=== PATIENT | male | born 1930 | race Caucasian/White ===

== ENCOUNTER 2016-12-21 09:37 | Emergency (ER) | payer MEDICARE ==
--- NOTE | 2016-12-21 09:53 | ED.PDOC ---
History of Present Illness - General Chief Complaint: Respiratory Problem Stated Complaint: shortness of breath Time Seen by Provider: 12/21/16 09:39 Source: patient, family Exam Limitations: no limitations - History of Present Illness Initial Comments: Patient is an 86 yo M with CHF, NIDDM, COPD, HTN, atrial fibrillation who presents with dyspnea for two days and chest pain for three days. He says he has had the chest pain multiple previous times. It is mid-sternal, constant, non -radiating, pressure like, no modifying factors. Has chronic bipedal edema that he will take lasix prn for. Last lasix dose three days ago. Distant hx of smoking. Timing/Duration: other - 3 days Severity: moderate Improving Factors: rest Worsening Factors: movement Associated Symptoms: chest pain, shortness of breath Allergies/Adverse Reactions: Allergies Aspirin [From ASA Compound] Allergy (Verified 12/20/12 13:46) Caffeine [From ASA Compound] Allergy (Verified 12/20/12 13:46) Penicillins Allergy (Verified 12/20/12 13:46) Phenacetin [From ASA Compound] Allergy (Verified 12/20/12 13:46) Home Medications: Ambulatory Orders Albuterol Inhaler [Ventolin Hfa Inhaler] 1 puff INH PRN #0 03/09/13 Budesonide-Formoterol Fumarate [Symbicort 160-4.5 Mcg/Act] 2 inh INH BID #0 09/11 Tiotropium Inhaler [Spiriva Handihaler] 1 puff INH DAILY #0 03/09/13 Albuterol Sulfate 1.25 mg IN Q4H PRN 11/04/16 Apixaban [Eliquis] 2.5 mg PO BID 11/04/16 Aspirin [Aspirin Childrens] 81 mg PO DAILY 11/04/16 Finasteride 5 mg PO BEDTIME 11/04/16 Flunisolide (Nasal) [Flunisolide] 2 spray INH BID 11/04/16 Furosemide [Lasix] 20 mg PO DAILY PRN 11/04/16 Gabapentin 600 mg PO TID 11/04/16 Metformin HCl [Metformin HCl ER] 500 mg PO DAILY 11/04/16 Midodrine HCl 5 mg PO TID 11/04/16 Ranolazine [Ranexa] 500 mg PO BID 11/04/16 Bifidobacterium Infantis [Align] 4 mg PO DAILY #30 cap 11/10/16 Doxycycline (Monohydrate) [Doxycycline] 100 mg PO BID #20 cap 11/10/16 Isosorbide Mononitrate (Ismo) [Ismo] 20 mg PO QPM #15 tab 11/10/16 Nitroglycerin Patch 0.4 mg/Hr [Nitro-Dur PATCH 0.4 mg/hour] 1 ea TOP QAM #15 patch 11/10/16 Terazosin [Hytrin] 2 mg PO BEDTIME #30 cap 11/10/16 guaiFENesin ER TAB [Mucinex Tab] 600 mg PO BID #0 tab 11/10/16 levoFLOXacin [Levaquin] 500 mg PO DAILY #11 tab 11/10/16 predniSONE [Prednisone] See Taper PO DAILY #30 tab 11/10/16 Review of Systems - Review of Systems Constitutional: States: no symptoms reported EENTM: States: no symptoms reported Respiratory: States: see HPI Cardiology: States: see HPI Gastrointestinal/Abdominal: States: no symptoms reported Genitourinary: States: no symptoms reported Musculoskeletal: States: no symptoms reported Skin: States: no symptoms reported Neurological: States: no symptoms reported Endocrine: States: no symptoms reported Hematologic/Lymphatic: States: no symptoms reported Past Medical History (General) - Patient Medical History Hx Seizures: No Hx Stroke: No Hx Asthma: Yes Hx of COPD: Yes Hx Cardiac Disorders: Yes - afib Hx Congestive Heart Failure: Yes Hx Pacemaker: No Hx Hypertension: Yes Hx Diabetes: No Hx Cancer: No Hx Hepatitis C: No Hx MRSA: No - Vaccination History Hx Tetanus, Diphtheria Vaccination: Yes Hx Influenza Vaccination: Yes Hx Pneumococcal Vaccination: Yes - Social History Hx Tobacco Use: No Hx Chewing Tobacco Use: No Hx Alcohol Use: No Hx Substance Use: No Hx Physical Abuse: No Hx Emotional Abuse: No Hx Suspected Abuse: No Family Medical History - Family History Mother Family History: No Known Physical Exam - Physical Exam General Appearance: Obvious distress Eye Exam: bilateral normal Ears, Nose, Throat: normal ENT inspection Neck: non-tender, full range of motion, supple Respiratory: other - tachypneia, + use of accessory muscles, + expiratory wheezes in all lung dewitt Cardiovascular/Chest: tachycardia, irregularly irregular Gastrointestinal/Abdominal: normal bowel sounds, non tender, soft Extremity: non-tender, no pedal edema Neurologic: no motor/sensory deficits Skin Exam: normal color Lymphatic: no adenopathy Progress - Progress Progress: 12/21/16 14:04 Patient received Lasix 40 mg IV x one and solumedrol 125 mg IV x one. BNP 297. He had over 200 cc urine output and his dyspnea resolved. 12/21/16 14:06 Patient revealed that he was told by his pcp to take lasix 20 mg every morning but he hasn't been doing that. This appears to be mild CHF exac that has resolved. I will discharge him with instructions to take his lasix daily. His son will stay with him tonight. Strict orders to return to the ER if shortness of breath recurs. Departure - Departure Clinical Impression: CHF (congestive heart failure), NYHA class I Disposition: Discharge to Home or Self Care Condition: Good Departure Forms: ED Discharge - Pt. Copy, Patient Portal Self Enrollment Diet: resume usual diet Activity: increase activity as tolerated Home Medications: Ambulatory Orders Albuterol Inhaler [Ventolin Hfa Inhaler] 1 puff INH PRN #0 03/09/13 Budesonide-Formoterol Fumarate [Symbicort 160-4.5 Mcg/Act] 2 inh INH BID #0 09/11 Tiotropium Inhaler [Spiriva Handihaler] 1 puff INH DAILY #0 03/09/13 Albuterol Sulfate 1.25 mg IN Q4H PRN 11/04/16 Apixaban [Eliquis] 2.5 mg PO BID 11/04/16 Aspirin [Aspirin Childrens] 81 mg PO DAILY 11/04/16 Finasteride 5 mg PO BEDTIME 11/04/16 Flunisolide (Nasal) [Flunisolide] 2 spray INH BID 11/04/16 Furosemide [Lasix] 20 mg PO DAILY PRN 11/04/16 Gabapentin 600 mg PO TID 11/04/16 Metformin HCl [Metformin HCl ER] 500 mg PO DAILY 11/04/16 Midodrine HCl 5 mg PO TID 11/04/16 Ranolazine [Ranexa] 500 mg PO BID 11/04/16 Bifidobacterium Infantis [Align] 4 mg PO DAILY #30 cap 11/10/16 Doxycycline (Monohydrate) [Doxycycline] 100 mg PO BID #20 cap 11/10/16 Isosorbide Mononitrate (Ismo) [Ismo] 20 mg PO QPM #15 tab 11/10/16 Nitroglycerin Patch 0.4 mg/Hr [Nitro-Dur PATCH 0.4 mg/hour] 1 ea TOP QAM #15 patch 11/10/16 Terazosin [Hytrin] 2 mg PO BEDTIME #30 cap 11/10/16 guaiFENesin ER TAB [Mucinex Tab] 600 mg PO BID #0 tab 11/10/16 levoFLOXacin [Levaquin] 500 mg PO DAILY #11 tab 11/10/16 predniSONE [Prednisone] See Taper PO DAILY #30 tab 11/10/16 Additional Instructions: Take your lasix as directed by your regular doctor. Return to the ER immediately for shortness of breath or fever. Follow up with your regular doctor this week.
[2016-12-21] MEDS ORDERED: FUROSEMIDE INJ 40 MG/4 ML VIAL IV ONE (09:58)
[2016-12-21] MEDS ORDERED: methylPREDNISolone SODIUM SUC 125 MG/2 ML VIAL IV ONE (09:58)
[2016-12-21] MEDS ORDERED: NITROGLYCERIN/D5W IV 250 ML IVS ONE (10:01)
--- NOTE | 2016-12-21 10:19 | RAD ---
EXAM DESCRIPTION: XR CHEST 1 VIEW CLINICAL HISTORY: 86 y/o M, dyspnea, chest pain COMPARISON: 11/10/2016. TECHNIQUE: Frontal radiograph of the chest. FINDINGS: The lungs are emphysematous but clear. The heart is at the upper limit of normal in size. There is no pneumothorax or pleural effusion. The left costophrenic angle has been collimated from view. There is no acute fracture. IMPRESSION: Emphysematous appearing lungs. Electronically signed by: Júnior Monroe MD 12/21/2016 10:17
[2016-12-21] MEDS ORDERED: NEOMYCIN-BACITRACIN-POLYMYXIN 0.9 GM UD TOP ONE (14:22)
[2016-12-21] MEDS ORDERED: IPRATROPIUM/ALBUTEROL 3 ML VIAL NEB ONE (15:00)
[2016-12-21 15:56] VITALS: BP 123/69; TEMP 98; O2SAT 95
== END 2016-12-21 14:42 | disposition home or self-care (01) ==
LOC: ER 09:37
DX: I11.0 Hypertensive heart disease with heart failure (principal); I50.9 Heart failure, unspecified; I48.91 Unspecified atrial fibrillation; Z79.82 Long term (current) use of aspirin; Z79.899 Other long term (current) drug therapy; Z88.0 Allergy status to penicillin; Z88.6 Allergy status to analgesic agent

== ENCOUNTER 2016-12-22 15:25 | Inpatient (IN) | payer MEDICARE ==
--- NOTE | 2016-12-22 15:49 | HP ---
SUPERVISING PHYSICIAN: Rufino Jha M.D. CHIEF COMPLAINT: Severe shortness of breath. HISTORY OF PRESENT ILLNESS: Mr. De Luna is an 86 year-old male patient of Dr. Sykes's who was seen today in the clinic in followup from E. R. visit this past weekend for the same complaint of shortness of breath. In the Emergency Department, the patient was felt to be having a mild exacerbation of his congestive heart failure. He was discharged with instructions to take his Lasix as normal at home and to return to the hospital should he not have any improvement of symptoms. Today in the office, Dr. Sykes found the patient to be in moderate respiratory distress. He requested the patient be admitted to the Medical/Surgical floor for treatment and evaluation having failed outpatient treatment plan for exacerbation of chronic obstructive pulmonary disease as his O2 saturations in the clinic today was 83% on nasal cannula at 5 liters. It was noted the patient was also given Solu-Medrol in the E. R. prior to discharge. The patient reports that he had minimal improvement in his symptoms. He went home and had significant worsening of symptoms overnight requiring him to increase his flow on his nasal cannula as well as he noted that he is having significant wheezing and a cough that is now becoming productive with thick green sputum. He was sent to the hospital for direct admission. He was admitted in stable condition for exacerbation of chronic obstructive pulmonary disease having failed to respond to outpatient treatment plan. PAST MEDICAL HISTORY: 1. Congestive heart failure of unknown etiology with no recent echocardiogram. 2. Chronic obstructive pulmonary disease with frequent exacerbations with last hospitalization being on 11/04/16. 3. Type 2 diabetes. 4. Gastroesophageal reflux disease. 5. Hyperlipidemia. 6. Hypertension. 7. Osteoarthritis. 8. Chronic atrial fibrillation with the patient being on Eliquis for anticoagulation. PAST SURGICAL HISTORY: 1. Cholecystectomy. 2. Hernia repair. 3. Scope of his knee. OUTPATIENT MEDICATIONS: Please refer to electronic medical records and [facility] for an updated list of verified home medications. ALLERGIES: HE STATES HE HAS NO KNOWN DRUG ALLERGIES, ALTHOUGH HIS CHART STATES THAT HE HAS AN ALLERGY TO ASPIRIN, PENICILLIN, CAFFEINE, PHENACETIN, ALTHOUGH HE TAKES AN ASPIRIN DAILY. FAMILY HISTORY: Unremarkable. SOCIAL HISTORY: He is retired. He does have a past history of cigarette smoking but he quit in 1974. He denies any alcohol or illicit drug use. REVIEW OF SYSTEMS: CONSTITUTIONAL: He does note some chills, fevers subjective with significant fatigue with no unintentional weight loss or weight gain. HEENT: Denies any sinus symptoms, ear pain, vision changes or sore throat. RESPIRATORY: As noted per History of Present Illness. Severe shortness of breath having been seen in the Emergency Department on previous day having not responded to treatment plan. CARDIOVASCULAR: Denies any chest pains, palpitations or tachycardia. GASTROINTESTINAL: Denies any abdominal pains, constipation, diarrhea, nausea or vomiting. MUSCULOSKELETAL: Notes generalized arthralgias and myalgias. GENITOURINARY: Denies any hematuria, nocturia or dysuria. NEUROLOGIC: Denies any headaches, dizziness or seizures. PHYSICAL EXAMINATION: VITAL SIGNS: Temperature 98.0, pulse 84, blood pressure 114/65, respirations 24 to 28 and labored with O2 sat initially showing in the clinic to be 83% on room air with only improving to 86% with 4 liter to 5 liter nasal cannula prior to breathing treatments. After breathing treatments, the patient was noted to have significant improvement in his saturations being 94% on nasal cannula at 4 liters. GENERAL: Mr. De Luna appears to be in acute distress secondary to respiratory distress with pursed lip breathing, inability to talk in complete sentences, and notably tachypneic. HEENT: Tympanic membranes are clear bilaterally. Oropharynx is pink. Oral mucosa are dry. No lesions noted. NECK: No jugular venous distention. CHEST: Breath sounds are significantly decreased throughout the entire chest with some notable expiratory wheezing with an extended expiratory phase with some notable rhonchi heard through bilateral bases. CARDIOVASCULAR: Heart is regular rate and rhythm without appreciable murmurs, gallops, or rubs. ABDOMEN: Soft, non-tender. Positive bowel sounds. EXTREMITIES: No cyanosis, clubbing or edema. There is notable mild swelling of the left elbow which is chronic with some serosanguinous drainage but no obvious areas of fluctuation. The area is tender with palpation. NEUROLOGIC: He is alert and oriented times three with severe decreased hearing requiring hearing aids. Cranial nerves II-XII are grossly intact. Facial features are symmetric. Extraocular movements are within normal limits. There is no nystagmus. LABORATORY: White count 9.1 which is increased from previous CBC yesterday of 6.1, hemoglobin shows to be 13.4, hematocrit 40.0, platelet count 190,000. He does show a left shift which was not present yesterday in the Emergency Department. Coagulation studies show PT 12.6, PTT 23.4. D-dimer yesterday was less than 230. Blood gases today are slightly worse than previous in the E. R. yesterday with pH of 7.37 compared to 7.4. Today, his PCO2 was 51 compared to 41 as well as PO2 is up to 109 compared to 102 with a bicarb of 29 compared to 27. Base excess is within normal limits at 3.3. Oxyhemoglobin percentage was 97.6. Chemistries show sodium 139, potassium 4.5, carbon dioxide 33 which is elevated from labs completed in the E. R. yesterday showed to be 29. BUN 28, creatinine 0.95, glucose 150, lactic acid 1.4, calcium 9.1, magnesium 1.9. AST , ALT and alkaline phosphatase are all within normal limits. BNP today shows to be significantly decreased from admission in the Emergency Departments yesterday at 124 compared to initial 297. CPK is normal at 27 with an elevated CK-MB percentage of 18.52 with troponin less than 0.03. MICROBIOLOGY: Nasal swabs for flu A and B by PCR were both negative. He has 2 blood cultures pending. Sputum culture is pending. Urinalysis is pending. EKG shows no acute changes from previous days. It shows atrial fibrillation with a controlled ventricular rate. RADIOLOGY: Chest x-ray today per radiology interpretation shows enlarged cardiac silhouette unchanged from previous exams. There is straightening of the pulmonary vessels at the upper lungs compatible with underlying emphysematous changes as well as old rib fractures noted. There is no noted focal parenchyma or pleural disease with no obvious evidence of acute cardiopulmonary disease per radiology interpretation. ASSESSMENT: 1. Acute exacerbation of chronic obstructive pulmonary disease having failed outpatient treatment plan with concerns now for early pneumonia likely community acquired with the patient having a history of recent hospitalization for exacerbation of chronic obstructive pulmonary disease within the last 90 days with Pseudomonas noted in his sputum. 2. Moderate respiratory distress secondary to exacerbation of chronic obstructive pulmonary disease as noted in number 1 with ABGs indicating a partially compensated respiratory acidosis. 3. Gastroesophageal reflux disease. 4. Diabetes mellitus type 2. 5. Osteoarthritis. PLAN: The patient was directly admitted from the clinic at Dr. Sykes's request. The patient initially was in mild to moderate respiratory distress upon arrival to the Medical/Surgical floor and was given DuoNeb treatment with significant improvement with BiPAP for standby with the patient showing improvement without need for noninvasive ventilatory support. Given he has a significant exacerbation of his COPD and failed to respond to outpatient treatment, and a history of left lower lobe pneumonia within the last 90 days with Pseudomonas aeruginosa, he will be started on Levaquin every 24 hours and await sputum culture results. He will be started on q.i.d. DuoNeb treatments and p.r.n. Albuterol as needed. Will anticipate length of stay to be 2 to 3 days pending clinical improvement and final culture results. Until then, will continue to monitor the patient closely and treat appropriately. #[id number] [facility]
[2016-12-22] MEDS ORDERED: GLUCAGON INJ 1 MG VIAL SUBCU PRN (16:00)
[2016-12-22] MEDS ORDERED: ACETAMINOPHEN 325 MG TAB PO PRN (16:00)
[2016-12-22] MEDS ORDERED: DEXTROSE 50% 25 GM/50 ML SYG IV PRN (16:00)
[2016-12-22] MEDS ORDERED: ALBUTEROL SULFATE 2.5 MG/3 ML VIAL NEB PRN (16:00)
[2016-12-22] MEDS ORDERED: methylPREDNISolone SODIUM SUC 125 MG/2 ML VIAL IV ONE (16:19)
[2016-12-22] MEDS: IPRATROPIUM/ALBUTEROL 3 ML VIAL INH SCH ×2 (16:20→20:23)
[2016-12-22] MEDS ORDERED: levoFLOXacin 500 MG TAB ONE (16:54)
[2016-12-22] MEDS ORDERED: levoFLOXacin 500MG IV 100 ML IVPB ONE ×2 (16:56→18:25)
[2016-12-22] MEDS ORDERED: ISOSORBIDE MONONITRATE (ISMO) 20 MG TAB PO SCH (18:00)
[2016-12-22] MEDS: levoFLOXacin 500MG IV 500 MG in PREMIX BAG 1 BAG IVPB SCH (18:09)
[2016-12-22] MEDS: INSULIN LISPRO 100 UNITS/ML PEN SUBCU SCH ×2 (18:11→21:14)
[2016-12-22] MEDS: IV SET AND CAP CHANGE INJ INJ SCH (18:11)
--- NOTE | 2016-12-22 18:11 | PCM.CORE ---
Physician DVT/VTE - Prophylaxis Currently: Patient already on anticoagulation therapy - Rupal - Nurse DVT Assessment & Total Each Risk Factor Represents 3 Points: Age over 75 years, Medical PT with Hx of NC, CHF, Severe infection/sepsis Each Risk Factor is 1 Point: Varicose Veins/Edema Legs, Serious Lung disease ( pnemonia <1month, COPD, emphysema,etc) DVT Assessment Score: 8 - 5 or more Very High Risk Treatments: Early Ambulation *, Sequential Compression Device
--- NOTE | 2016-12-22 19:35 | RAD ---
EXAM DESCRIPTION: Chest,2 Views CLINICAL HISTORY: exacerbation COPD COMPARISON: December 21, 2016 FINDINGS: Cardiac silhouette is enlarged, unchanged compared with the prior exam. There is atherosclerosis. EKG leads project over the chest. Straightening of the pulmonary vessels at the upper lungs compatible with underlying emphysematous changes. There are old right rib fractures. There is no focal parenchymal or pleural disease. There is no acute osseous process visualized. IMPRESSION: No evidence of acute cardiopulmonary disease. Electronically signed by: Shade Williamson MD 12/22/2016 5:34 PM PST
[2016-12-22] MEDS: SODIUM CHLORIDE 0.9% (FLUSH) 10 ML SYG IV SCH (21:13)
[2016-12-22] MEDS ORDERED: KCL 20MEQ/D5NS 1,000 ML IVS ONE (22:44)
[2016-12-22] MEDS: BUDESONIDE/FORMOTEROL 160/4.5 60 PUFF/6 GM INH INH SCH (23:04)
[2016-12-22] MEDS: APIXABAN 2.5 MG TAB PO SCH (23:05)
[2016-12-22] MEDS: RANOLAZINE 500 MG TAB PO SCH (23:05)
[2016-12-22] MEDS: FINASTERIDE 5 MG TAB PO SCH (23:05)
[2016-12-22] MEDS: TERAZOSIN 1 MG CAP PO SCH (23:06)
[2016-12-22] MEDS: GABAPENTIN 300 MG CAP PO SCH (23:06)
[2016-12-22] MEDS: MIDODRINE HCL 5 MG PO SCH (23:15)
[2016-12-22] MEDS: KCL 20 MEQ/NS 1,000 ML IVS PRN (23:18)
[2016-12-22] MEDS: SODIUM CHLORIDE 0.9% (FLUSH) 10 ML SYG IV PRN (23:42)
[2016-12-23] MEDS: methylPREDNISolone SODIUM SUC 125 MG/2 ML VIAL IV SCH ×5 (00:07→19:26)
[2016-12-23] MEDS: SODIUM CHLORIDE 0.9% (FLUSH) 10 ML SYG IV PRN ×2 (00:08→19:35)
[2016-12-23] MEDS: KCL 20 MEQ/NS 1,000 ML IVS PRN (00:09)
[2016-12-23] MEDS: INSULIN LISPRO 100 UNITS/ML PEN SUBCU SCH ×6 (07:58→20:57)
[2016-12-23] MEDS ORDERED: TIOTROPIUM INHALER INH ONE (08:02)
[2016-12-23] MEDS: IPRATROPIUM/ALBUTEROL 3 ML VIAL INH SCH (08:08)
[2016-12-23] MEDS: BUDESONIDE/FORMOTEROL 160/4.5 60 PUFF/6 GM INH INH SCH ×2 (08:09→21:37)
[2016-12-23] MEDS ORDERED: TAMSULOSIN 0.4 MG CAP PO SCH (09:00)
[2016-12-23] MEDS: TIOTROPIUM INHALER INH SCH (09:00)
[2016-12-23] MEDS ORDERED: metFORMIN XR 500 MG TAB.ER.24 PO SCH (09:00)
[2016-12-23] MEDS ORDERED: FLUNISOLIDE NAS SCH (09:00)
[2016-12-23] MEDS: SODIUM CHLORIDE 0.9% (FLUSH) 10 ML SYG IV SCH ×2 (09:01→20:52)
[2016-12-23] MEDS: GABAPENTIN 300 MG CAP PO SCH ×3 (09:02→20:53)
[2016-12-23] MEDS: APIXABAN 2.5 MG TAB PO SCH ×2 (09:02→20:52)
[2016-12-23] MEDS: RANOLAZINE 500 MG TAB PO SCH ×2 (09:02→20:53)
[2016-12-23] MEDS: NITROGLYCERIN 0.4 MG/HR PATCH TOP SCH (09:06)
[2016-12-23] MEDS: ASPIRIN (CHEWABLE) 81 MG TAB PO SCH (09:06)
[2016-12-23] MEDS ORDERED: SODIUM CHL 0.9% 50ML MIN-BAG+ 50 ML IVPB ONE ×2 (09:59→20:17)
[2016-12-23] MEDS ORDERED: CEFEPIME 2 GM VIAL IVPB ONE ×2 (09:59→20:17)
[2016-12-23] MEDS: CEFEPIME 2 GM in SODIUM CHL 0.9% 50ML MIN-BAG+ 50 ML IVPB SCH ×2 (10:07→21:28)
[2016-12-23] MEDS: MIDODRINE HCL 5 MG PO SCH (10:12)
[2016-12-23] MEDS: BIFIDOBACTERIUM INFANTIS 4 MG CAP PO SCH (10:52)
[2016-12-23] MEDS ORDERED: FLUTICASONE PROP 0.05% NASAL 16 GM BTTL BNAS SCH (13:00)
[2016-12-23] MEDS: IPRATROPIUM/ALBUTEROL 3 ML VIAL NEB SCH ×3 (13:17→21:37)
[2016-12-23] MEDS ORDERED: levoFLOXacin 500MG IV 100 ML IVPB ONE (13:32)
[2016-12-23] MEDS: FLUTICASONE PROP 0.05% NASAL 16 GM BTTL BNAS SCH (13:32)
[2016-12-23] MEDS: MIDODRINE HCL 10 MG PO SCH ×2 (14:39→20:53)
[2016-12-23] MEDS: levoFLOXacin 500MG IV 500 MG in PREMIX BAG 1 BAG IVPB SCH (16:15)
--- NOTE | 2016-12-23 20:02 | PN ---
SUPERVISING PHYSICIAN: Mariya Jha MD DATE: 12/23/16 SUBJECTIVE: The patient had a little acute declining respiratory effort last night requiring BiPAP for a small amount of time. He did show good improvement by this morning, although Naqvi placed night after he was given some Lasix and was not able to actually go the bedside commode or use his urinal without significant desaturation. He does remain afebrile. He continues with productive cough. OBJECTIVE: VITAL SIGNS: T-max 97.9. Pulse 104. Blood pressure 112/64. Respirations 20. Saturation 99% on nasal cannula at rest. I&Os show negative balance of 310 with 440 in and 750 out. GENERAL: The patient is resting comfortably. He appears to be in no distress now. CHEST: Lungs have much better aeration today, but continue to be coarse bilaterally, more so towards the bases, but no wheezing is noted. HEART: Slightly irregular with controlled ventricular rate. ABDOMEN: Soft, nontender. Positive bowel sounds. EXTREMITIES: No cyanosis, clubbing or edema. NEUROLOGIC: Alert and oriented times three. LABORATORY: White count 5.8, hemoglobin 12.1, hematocrit 35.6, platelet count 171,000. Differential shows continued left shift, however, the patient has been started on high dose corticosteroids. Chemistries today show normal sodium 137, potassium 4.3, carbon dioxide 29, BUN 32, creatinine 1.0, glucoses have been 154 to 200, calcium 8.9. MICROBIOLOGY: Blood cultures times 2 remain negative at 24 hours. Sputum culture preliminary per review showed gram negative candy likely to be pseudomonas , awaiting final identification and sensitivity report. RADIOLOGY: No additional radiographic studies today. Plan to repeat x-rays in the morning. ASSESSMENT: 1. Acute exacerbation of chronic obstructive pulmonary disease having failed outpatient treatment plan with concerns for early pneumonia likely community acquired with the patient having a history of recent hospitalization for exacerbation of chronic obstructive pulmonary disease within the last 90 days , Pseudomonas noted in his sputum on last admission with current sputum showing a gram negative candy -questionable Pseudomonas species, awaiting final culture results. Patient will be started on additional antibiotic to include cefepime given history of previous Peudomonas infection. 2. Moderate respiratory distress secondary to exacerbation of chronic obstructive pulmonary disease as noted in #1 initially with ABGs indicating a partially compensated respiratory acidosis requiring intermittent BiPAP. 3. Gastroesophageal reflux disease. 4. Diabetes mellitus, type 2. 5. Osteoarthritis. PLAN: We will await final culture results, but at this point given he has pseudomonas in his sputum last admission, I will go ahead and start him on cefepime 2 grams q.12h for renal dose. He will continue with Levaquin and we will await final culture results to better target antibiotic therapy. He is encouraged to ambulate at least 2 to 4 times a day and work with respiratory and aggressive pulmonary hygiene. Physical therapy is working with him as well to further assess his safety. We will anticipate at least another 24 to 48 hours of parenteral antibiotic need, awaiting final culture results to further target antibiotic therapy. Until then, we will continue to monitor the patient closely and treat appropriately. #[id number] [facility]
[2016-12-23] MEDS: TAMSULOSIN 0.4 MG CAP PO SCH (20:52)
[2016-12-23] MEDS: TERAZOSIN 1 MG CAP PO SCH (20:52)
[2016-12-23] MEDS: FINASTERIDE 5 MG TAB PO SCH (20:53)
[2016-12-23] MEDS: REMOVE OLD PATCH TOP SCH (20:53)
[2016-12-24] MEDS: methylPREDNISolone SODIUM SUC 125 MG/2 ML VIAL IV SCH ×4 (00:37→18:29)
[2016-12-24] MEDS ORDERED: SODIUM CHL 0.9% 50ML MIN-BAG+ 50 ML IVPB ONE ×2 (07:20→20:35)
[2016-12-24] MEDS ORDERED: levoFLOXacin 500MG IV 100 ML IVPB ONE (07:21)
[2016-12-24] MEDS ORDERED: CEFEPIME 2 GM VIAL IVPB ONE ×2 (07:22→20:36)
[2016-12-24] MEDS: INSULIN LISPRO 100 UNITS/ML PEN SUBCU SCH ×4 (07:26→21:50)
[2016-12-24] MEDS: metFORMIN HCL 500 MG TAB PO SCH (07:26)
[2016-12-24] MEDS: IPRATROPIUM/ALBUTEROL 3 ML VIAL NEB SCH ×4 (08:32→20:30)
[2016-12-24] MEDS: BUDESONIDE/FORMOTEROL 160/4.5 60 PUFF/6 GM INH INH SCH ×2 (08:32→20:30)
[2016-12-24] MEDS: TIOTROPIUM INHALER INH SCH (08:33)
[2016-12-24] MEDS: RANOLAZINE 500 MG TAB PO SCH ×2 (08:37→21:36)
[2016-12-24] MEDS: GABAPENTIN 300 MG CAP PO SCH ×3 (08:37→21:37)
[2016-12-24] MEDS: APIXABAN 2.5 MG TAB PO SCH ×2 (08:37→21:50)
[2016-12-24] MEDS: NITROGLYCERIN 0.4 MG/HR PATCH TOP SCH (08:37)
[2016-12-24] MEDS: FLUTICASONE PROP 0.05% NASAL 16 GM BTTL BNAS SCH (08:37)
[2016-12-24] MEDS: MIDODRINE HCL 10 MG PO SCH ×3 (08:37→21:37)
[2016-12-24] MEDS: BIFIDOBACTERIUM INFANTIS 4 MG CAP PO SCH (08:37)
[2016-12-24] MEDS: ASPIRIN (CHEWABLE) 81 MG TAB PO SCH (08:37)
[2016-12-24] MEDS: SODIUM CHLORIDE 0.9% (FLUSH) 10 ML SYG IV SCH ×2 (10:04→21:51)
[2016-12-24] MEDS: CEFEPIME 2 GM in SODIUM CHL 0.9% 50ML MIN-BAG+ 50 ML IVPB SCH ×2 (10:04→21:38)
[2016-12-24] MEDS: levoFLOXacin 500MG IV 500 MG in PREMIX BAG 1 BAG IVPB SCH (16:25)
[2016-12-24] MEDS: TERAZOSIN 1 MG CAP PO SCH (21:36)
[2016-12-24] MEDS: FINASTERIDE 5 MG TAB PO SCH (21:36)
[2016-12-24] MEDS: TAMSULOSIN 0.4 MG CAP PO SCH (21:36)
--- NOTE | 2016-12-24 21:48 | PN ---
DATE: 12/24/16 SUPERVISING PHYSICIAN: Jareth Carnes M.D. SUBJECTIVE: The patient is lying in bed. He is resting. He awakens easily. He has no complaints of shortness of breath except with some exertion. He became short of breath when he transferred from the chair to his bed as well as when he was eating, but other than that he feels that he is breathing much easier. He denies any chest pain or abdominal pain. No dizziness or headaches. OBJECTIVE: VITAL SIGNS: He is afebrile, heart rate 114, blood pressure 98/56, respiratory rate 20, O2 sat 92% on 2 liters nasal cannula. Weight is stable at this time. GENERAL: This is an 86 year-old male patient who is lying in his hospital bed. He is in no acute distress. RESPIRATORY: Diminished breath sounds throughout. He does have a few scattered rhonchi. There are no wheezes noted. HEART: Rate is slightly irregular rhythm but controlled rate. ABDOMEN: Soft, nondistended, non-tender. Bowel sounds are positive. No cyanosis, clubbing or edema. NEUROLOGIC: He is awake, alert and oriented times three. LABORATORY: CMP is mostly stable with sodium 140, potassium 4.5, chloride 103, carbon dioxide 31, BUN 31, creatinine 0.83, glucose is somewhat high at 199. WBCs of 7.2, hemoglobin and hematocrit are stable at 11.9 and 35.6. His sputum culture is positive for Pseudomonas aeruginosa and is sensitive to Cefepime which he is on. All other labs and films have been reviewed via the EMR. ASSESSMENT: 1. Acute exacerbation of chronic obstructive pulmonary disease having failed outpatient treatment plan and concerns for early pneumonia. Pseudomonas was noted in his sputum on last admission. 2. Moderate respiratory distress secondary to exacerbation of chronic obstructive pulmonary disease that requires intermittent BiPAP, but is improved today. 3. Gastroesophageal reflux disease. 4. Diabetes mellitus type 2. 5. Osteoarthritis. PLAN: We will continue with aggressive pulmonary toilet. I will slowly titrate his Solu-Medrol down. He can use his BiPAP tonight if he becomes more dyspneic. We will continue his Cefepime for right now. His lab is mostly stable so I will hold on that for tomorrow but I will repeat a chest x-ray. I will also do a physical therapy consultation as well as encourage walking in the hallways. We will continue to monitor the patient closely and followup as needed. Dr. Carnes is the collaborating physician available for consultation. #[id number] [facility]ENTERJulienne
[2016-12-24] MEDS: REMOVE OLD PATCH TOP SCH (21:51)
[2016-12-25] MEDS: methylPREDNISolone SODIUM SUC 40 MG/ML VIAL IV SCH ×5 (00:02→23:57)
--- NOTE | 2016-12-25 07:09 | RAD ---
EXAM: Two view chest. INDICATION: Chest pain. COMPARISON: Chest x-ray: 12/23/2016. FINDINGS: The lungs are emphysematous but clear. The heart is mildly enlarged. There is no pneumothorax or pleural effusion. There is no acute fracture IMPRESSION: Emphysematous appearing lungs Electronically signed by: Júnior Monroe MD 12/25/2016 7:08 AM NETWORK [employer]ATE
[2016-12-25] MEDS: INSULIN LISPRO 100 UNITS/ML PEN SUBCU SCH ×4 (07:39→22:06)
[2016-12-25] MEDS: metFORMIN HCL 500 MG TAB PO SCH (08:04)
[2016-12-25] MEDS: IPRATROPIUM/ALBUTEROL 3 ML VIAL NEB SCH ×4 (09:06→20:50)
[2016-12-25] MEDS: BUDESONIDE/FORMOTEROL 160/4.5 60 PUFF/6 GM INH INH SCH ×2 (09:07→20:50)
[2016-12-25] MEDS: TIOTROPIUM INHALER INH SCH (09:07)
[2016-12-25] MEDS: ASPIRIN (CHEWABLE) 81 MG TAB PO SCH (09:24)
[2016-12-25] MEDS: RANOLAZINE 500 MG TAB PO SCH ×2 (09:25→22:01)
[2016-12-25] MEDS: MIDODRINE HCL 10 MG PO SCH ×3 (09:25→22:14)
[2016-12-25] MEDS: BIFIDOBACTERIUM INFANTIS 4 MG CAP PO SCH (09:25)
[2016-12-25] MEDS: GABAPENTIN 300 MG CAP PO SCH ×3 (09:25→22:01)
[2016-12-25] MEDS: APIXABAN 2.5 MG TAB PO SCH ×2 (09:25→22:00)
[2016-12-25] MEDS: SODIUM CHLORIDE 0.9% (FLUSH) 10 ML SYG IV SCH ×2 (09:26→22:01)
[2016-12-25] MEDS: NITROGLYCERIN 0.4 MG/HR PATCH TOP SCH (09:26)
[2016-12-25] MEDS: FLUTICASONE PROP 0.05% NASAL 16 GM BTTL BNAS SCH (09:26)
[2016-12-25] MEDS ORDERED: SODIUM CHL 0.9% 50ML MIN-BAG+ 50 ML IVPB ONE ×2 (09:53→21:18)
[2016-12-25] MEDS ORDERED: CEFEPIME 2 GM VIAL IVPB ONE ×2 (09:53→21:18)
[2016-12-25] MEDS: CEFEPIME 2 GM in SODIUM CHL 0.9% 50ML MIN-BAG+ 50 ML IVPB SCH ×2 (10:01→22:03)
[2016-12-25] MEDS ORDERED: levoFLOXacin 500MG IV 100 ML IVPB ONE (15:09)
[2016-12-25] MEDS: IV SET AND CAP CHANGE INJ INJ SCH (16:00)
[2016-12-25] MEDS: levoFLOXacin 500MG IV 500 MG in PREMIX BAG 1 BAG IVPB SCH (16:58)
[2016-12-25] MEDS: TAMSULOSIN 0.4 MG CAP PO SCH (22:00)
[2016-12-25] MEDS: TERAZOSIN 1 MG CAP PO SCH (22:00)
[2016-12-25] MEDS: FINASTERIDE 5 MG TAB PO SCH (22:01)
[2016-12-25] MEDS: REMOVE OLD PATCH TOP SCH (22:03)
[2016-12-25] MEDS: SODIUM CHLORIDE 0.9% (FLUSH) 10 ML SYG IV PRN (23:57)
[2016-12-26] MEDS: methylPREDNISolone SODIUM SUC 40 MG/ML VIAL IV SCH ×4 (05:40→23:40)
[2016-12-26] MEDS: SODIUM CHLORIDE 0.9% (FLUSH) 10 ML SYG IV PRN ×2 (05:41→23:40)
[2016-12-26] MEDS: INSULIN LISPRO 100 UNITS/ML PEN SUBCU SCH ×4 (07:31→21:53)
[2016-12-26] MEDS: metFORMIN HCL 500 MG TAB PO SCH (07:53)
[2016-12-26] MEDS: BUDESONIDE/FORMOTEROL 160/4.5 60 PUFF/6 GM INH INH SCH ×2 (08:23→21:13)
[2016-12-26] MEDS: IPRATROPIUM/ALBUTEROL 3 ML VIAL NEB SCH ×4 (08:23→21:12)
[2016-12-26] MEDS: TIOTROPIUM INHALER INH SCH (08:24)
--- NOTE | 2016-12-26 08:37 | PN ---
SUPERVISING PHYSICIAN: Jareth Carnes MD DATE: 12/25/16 SUBJECTIVE: The patient is sitting up in his chair in his room. He looks much improved since yesterday. He still states he gets short of breath, but it is much better than it was yesterday. He denies any chest pain, abdominal pain, nausea or vomiting. He is still coughing quite a bit, but he says at least now he is coughing something up. OBJECTIVE: VITAL SIGNS: Afebrile. Heart rate 84. Blood pressure 100/62. Respiratory rate 18. O2 saturation 94% on 2 liters nasal cannula. LUNGS: Some scattered rhonchi in the apices, diminished at the bases. CARDIAC: Regular rate and rhythm. ABDOMEN: Soft, nontender, nondistended. EXTREMITIES : No cyanosis, clubbing or edema. NEUROLOGIC: Awake, alert and oriented times three. LABORATORY: Sodium 140, potassium 4.5, chloride 103, BUN 31, creatinine 0.83, glucose 199. Hemoglobin and hematocrit stable at 11.9 and 35.6. Sputum culture shows pseudomonas aeruginosa. It is sensitive to cefepime. Chest x- ray shows emphysematous appearing lungs. All other labs and films have been reviewed via the EMR. ASSESSMENT: 1. Acute exacerbation of chronic obstructive pulmonary disease having failed outpatient treatment plan and concerns for early pneumonia. 2. Pneumonia with pseudomonas in the sputum, presently on cefepime. 3. Moderate respiratory distress secondary to exacerbation of chronic obstructive pulmonary disease as well as pneumonia and requiring intermittent BiPAP, but continues progressive improvement. 4. Gastroesophageal reflux disease. 5. Diabetes mellitus, type 2. 6. Osteoarthritis. PLAN: I will repeat his lab in the morning. He has been on cefepime for several days and his culture shows sensitivity to Levaquin, so if he continues improvement, he may be discharged tomorrow on p.o. Levaquin. I will order an ambulatory study to make sure he is safe to go home. We have already initiated bladder training and his Naqvi should be discontinued today. Otherwise, we will continue to monitor the patient closely and followup as needed. #[id number] [facility]
[2016-12-26] MEDS: GABAPENTIN 300 MG CAP PO SCH ×3 (09:19→20:46)
[2016-12-26] MEDS: BIFIDOBACTERIUM INFANTIS 4 MG CAP PO SCH (09:19)
[2016-12-26] MEDS: ASPIRIN (CHEWABLE) 81 MG TAB PO SCH (09:19)
[2016-12-26] MEDS: NITROGLYCERIN 0.4 MG/HR PATCH TOP SCH (09:20)
[2016-12-26] MEDS: MIDODRINE HCL 10 MG PO SCH ×3 (09:21→20:47)
[2016-12-26] MEDS: RANOLAZINE 500 MG TAB PO SCH ×2 (09:21→20:46)
[2016-12-26] MEDS: SODIUM CHLORIDE 0.9% (FLUSH) 10 ML SYG IV SCH ×2 (09:22→20:46)
[2016-12-26] MEDS: FLUTICASONE PROP 0.05% NASAL 16 GM BTTL BNAS SCH (09:22)
[2016-12-26] MEDS: APIXABAN 2.5 MG TAB PO SCH ×2 (09:31→20:45)
[2016-12-26] MEDS ORDERED: SODIUM CHL 0.9% 50ML MIN-BAG+ 50 ML IVPB ONE ×2 (10:29→19:58)
[2016-12-26] MEDS ORDERED: CEFEPIME 2 GM VIAL IVPB ONE ×2 (10:30→19:58)
[2016-12-26] MEDS: CEFEPIME 2 GM in SODIUM CHL 0.9% 50ML MIN-BAG+ 50 ML IVPB SCH ×2 (10:40→21:55)
[2016-12-26] MEDS ORDERED: levoFLOXacin 500MG IV 100 ML IVPB ONE (11:53)
[2016-12-26] MEDS: levoFLOXacin 500MG IV 500 MG in PREMIX BAG 1 BAG IVPB SCH (17:22)
[2016-12-26] MEDS: TAMSULOSIN 0.4 MG CAP PO SCH (20:45)
[2016-12-26] MEDS: TERAZOSIN 1 MG CAP PO SCH (20:45)
[2016-12-26] MEDS: REMOVE OLD PATCH TOP SCH (20:46)
[2016-12-26] MEDS: FINASTERIDE 5 MG TAB PO SCH (20:46)
--- NOTE | 2016-12-26 20:53 | PN ---
DATE: 12/26/16 SUPERVISING PHYSICIAN: Rufino Jha M.D. SUBJECTIVE: The patient is resting in bed this morning. He just finished an ambulatory study. He states that he gets significantly short of breath with ambulation and per Respiratory Therapist, the patient was significantly short of breath with inability to even speak in full sentences during ambulation, although he did maintain sats greater than 90%. He continues to have a cough and it is now starting to be more productive. He denies any chest pains. He notes that he feels like his breathing pattern and respirations are close to his baseline status, however he just has significant dyspnea with any exertional effort. He does remain afebrile. OBJECTIVE: VITAL SIGNS: T max 98.0, pulse 85, blood pressure 107/63, respirations 20, O2 sat 97% on nasal cannula. I's and O's show a negative balance of 465 with 760 in, 1225 out. He has had 1 bowel movement. Weight is 68.0 kg. Ambulatory studies today showed the patient was on 2 liters satting 97 % prior to ambulation and maintained 94% with 2 liters, but required an increase in his flow to 3. After 5 minutes ambulation he was satting 92%. It was noted that he walked approximately 100 feet with his walker and was obviously in mild distress during his ambulation, and was able to communicate in full sentences with his dyspnea reported to be 9/10 again requiring an increase in his O2. He does report that his work of breathing has decreased after, but continues to show significant dyspnea with ambulation. CHEST: Lungs continue to have scattered rhonchi more so on the right mid lung field and very diminished towards the bases both right and left. HEART: Regular rate and rhythm. ABDOMEN: Soft, non-tender. Positive bowel sounds. EXTREMITIES: No cyanosis, clubbing or edema. NEUROLOGIC: He is alert and oriented times three. LABORATORY: White count 6.4, hematocrit stable at 11.3 and 33.5 hematocrit with a platelet count 164,000. Differential continues to show a left shift. Chemistries show normal electrolytes with potassium 4.3 with BUN 38, creatinine 0.73, glucoses have been 152 to 247. Liver functions are within normal limits. MICROBIOLOGY: Blood cultures remain negative at 4 days. Final sputum culture did show Pseudomonas aeruginosa that was sensitive to Cefepime as well as Cipro and Levaquin. RADIOLOGY: There was no chest x-ray repeated today. Plan to repeat one in the morning. ASSESSMENT: 1. Acute exacerbation of chronic obstructive pulmonary disease having failed outpatient treatment plan with pneumonia likely community acquired with final culture results showing Pseudomonas aeruginosa with the patient having been on Cefepime. 2. Moderate respiratory distress secondary to exacerbation of his chronic obstructive pulmonary disease as well as underlying pneumonia requiring intermittent BiPAP and showing slow improvement. 3. Gastroesophageal reflux disease. 4. Diabetes mellitus type 2. 5. Osteoarthritis. PLAN: Will continue with Cefepime today as well as Levaquin as his cultures did show both sensitive, however, he is making slow clinical improvement. Will continue with both antibiotics in anticipation of discharge on Levaquin. Will get another ambulatory study in the morning. Anticipate hopefully that he can go home tomorrow. His Naqvi catheter has been removed. Until discharge, will follow the patient closely and treat appropriately. #[id number] [facility]
[2016-12-27] MEDS: methylPREDNISolone SODIUM SUC 40 MG/ML VIAL IV SCH (05:32)
[2016-12-27] MEDS: SODIUM CHLORIDE 0.9% (FLUSH) 10 ML SYG IV PRN (05:33)
[2016-12-27] MEDS: INSULIN LISPRO 100 UNITS/ML PEN SUBCU SCH (07:27)
[2016-12-27] MEDS: metFORMIN HCL 500 MG TAB PO SCH (07:57)
[2016-12-27] MEDS: BUDESONIDE/FORMOTEROL 160/4.5 60 PUFF/6 GM INH INH SCH (08:45)
[2016-12-27] MEDS: IPRATROPIUM/ALBUTEROL 3 ML VIAL NEB SCH (08:45)
[2016-12-27] MEDS: TIOTROPIUM INHALER INH SCH (08:45)
[2016-12-27] MEDS: RANOLAZINE 500 MG TAB PO SCH (09:45)
[2016-12-27] MEDS: GABAPENTIN 300 MG CAP PO SCH (09:45)
[2016-12-27] MEDS: BIFIDOBACTERIUM INFANTIS 4 MG CAP PO SCH (09:45)
[2016-12-27] MEDS: ASPIRIN (CHEWABLE) 81 MG TAB PO SCH (09:46)
[2016-12-27] MEDS: FLUTICASONE PROP 0.05% NASAL 16 GM BTTL BNAS SCH (09:46)
[2016-12-27] MEDS: APIXABAN 2.5 MG TAB PO SCH (09:46)
[2016-12-27] MEDS: MIDODRINE HCL 10 MG PO SCH (09:46)
[2016-12-27] MEDS: NITROGLYCERIN 0.4 MG/HR PATCH TOP SCH (09:47)
[2016-12-27] MEDS: SODIUM CHLORIDE 0.9% (FLUSH) 10 ML SYG IV SCH (09:47)
[2016-12-27] MEDS ORDERED: SODIUM CHL 0.9% 50ML MIN-BAG+ 50 ML IVPB ONE (09:50)
[2016-12-27] MEDS ORDERED: CEFEPIME 2 GM VIAL IVPB ONE (09:51)
[2016-12-27] MEDS: CEFEPIME 2 GM in SODIUM CHL 0.9% 50ML MIN-BAG+ 50 ML IVPB SCH (09:54)
--- NOTE | 2016-12-27 10:16 | RAD ---
NAME: MELITON AGUSTINROCEDURE: XR CHEST 2 VIEWSORDER DATE: 12/27/2016 7:22 AM CSTACCESSION NUMBER: [id number] CLINICAL HISTORY: RLL PNA INDICATION: Evaluation of right lower lobe pneumonia COMPARISON: 12/25/2016 TECHNIQUE: PA and and lateral chest radiographs were obtained. FINDINGS: Underlying changes of COPD are again seen. There is presence of minimal right lower lobe infiltrate/atelectasis, unchanged There are no pneumothoraces or pleural effusions. The pulmonary vascularity is normal. Note is made of few old healed right-sided rib fractures. The cardiomediastinal silhouette is stable IMPRESSION: Underlying changes of COPD are again seen. There is presence of minimal right lower lobe infiltrate/atelectasis, unchanged . Place of interpretation: Teleradiology. Electronically signed by: Darien Brambila MD 12/27/2016 10:16 AM CUSTOMER PROGRAM MANAGER
[2016-12-27 10:25] VITALS: BP 115/65; TEMP 98.3; O2SAT 97
--- NOTE | 2016-12-28 12:24 | DS ---
SUPERVISING PHYSICIAN: Rufino Jha M.D. DISCHARGE DIAGNOSIS: 1. Acute exacerbation of chronic obstructive pulmonary disease having failed outpatient treatment plan with right lower lobe pneumonia secondary to Pseudomonas aeruginosa, community acquired, with the patient having been on Cefepime through admission showing good clinical improvement. 2. Moderate respiratory distress secondary to exacerbation of his chronic obstructive pulmonary disease on admission secondary to his underlying pneumonia requiring intermittent BiPAP through admission showing good improvement at time of discharge. 3. Gastroesophageal reflux disease. 4. Diabetes mellitus type 2. 5. Osteoarthritis. HISTORY OF PRESENT ILLNESS: Mr. De Luna is an 86 year-old male patient of Dr. Sykes's who was seen on the day of admission, 12/22/16, in the clinic in followup from E. R. visit from the previous week for the same complaint of shortness of breath. In the Emergency Department, the patient was felt to have a mild exacerbation of his congestive heart failure. At that time , he was discharged with instructions to take a Lasix as normal at home and to return to the hospital should he not have any improvement of symptoms. On the date of admission in the office on 12/22/16, Dr. Sykes noted the patient to be in moderate respiratory distress. The patient was then sent to the hospital for admission for treatment and evaluation having failed outpatient treatment plan for exacerbation of chronic obstructive pulmonary disease as his O2 saturations in the clinic showed 83% on nasal cannula at 5 liters. It was noted the patient had also been given Solu-Medrol in the E. R. prior to discharge. The patient reports that he had minimal improvement in his symptoms. He went home and had significant worsening of symptoms overnight thus requiring him to return to the E. R. after he was increasing his flow of O2 through his nasal cannula without any noted improvement and was having significant wheezing and a cough that was becoming more productive with thick green sputum. He was sent to the hospital for direct admission and admitted in stable condition for exacerbation of chronic obstructive pulmonary disease having failed to respond to outpatient treatment plan. LABORATORY: White count on admission was 9.1. It did stay within normal limits through discharge, at that time it was 6.4. Hemoglobin and hematocrit were stable at 11.3 and 33.5, platelet count was stable as well at 164,000 at time of discharge. Differential did show a left shift and continued to show through discharge. Coagulation studies showed a PT of 12.6 and PTT of 23.4 on admission. Initial blood gases on admission showed a pH of 7.37 with bicarb 29 , PO2 109 with PCO2 of 51 on 5 liters satting 99%. Initial chemistries on admission showed normal electrolytes with potassium 4.5, BUN 28, creatinine 0.95 , glucose 115. Liver functions showed to be within normal limits. Magnesium was normal at 1.9, lactic acid was within normal limits at 1.4. He did have troponin that was normal at 0.03 and BNP was slightly elevated at 124 with actually was down from discharge from the E. R. Urine on admission was within normal limits. Final chemistries at time of discharge showed him to have stabilized on his electrolytes with potassium 4.3, BUN 38, creatinine 0.73, glucoses were elevated secondary to corticosteroid administration from 107 to 238. MICROBIOLOGY: Flu for A and B by PCR was negative for both A and B. Blood cultures times 2 remained negative after 5 days. Final sputum culture did show Pseudomonas aeruginosa. Sensitivity pattern indicates sensitive to Cefepime as well as Cipro and Levofloxacin. Please refer to that sensitivity report for full details. RADIOLOGY: Initial chest x-ray on admission per radiology interpretation showed initially no evidence of cardiopulmonary disease. There were no notable consolidations. Followup chest x-ray on date of discharge did demonstrate underlying changes of chronic obstructive pulmonary disease with the presence of minimal right lower lobe infiltrate. HOSPITAL COURSE: Mr. De Luna is an 86 year-old male that was admitted as noted in History of Present Illness for exacerbation of chronic obstructive pulmonary disease that was found to be secondary to right lower lobe pneumonia that was secondary to Pseudomonas infection that was community acquired. Initial antibiotics included Levaquin and then he was started on Cefepime as well given his previous history of pneumonia with Pseudomonas. He clinically improved with antibiotic therapy as well as aggressive pulmonary hygiene and including aggressive Solu-Medrol IV administration. On date of discharge, the patient was back to near baseline status in regards to his respiratory pattern. Did show continuation of some dyspnea with exertion but had shown improvement through clinical progression and was on O2 chronically. He was felt well enough to be discharged for continuation of antibiotic therapy and to have close clinical followup. PLAN: Mr. De Luna was discharged on 12/27/16 with instructions to resume his home medications as previous and to have close clinical followup with Dr. Sykes. He was instructed to call Dr. Sykes's office on Thursday to get an appointment time. He was to remain on a steroid taper and continue antibiotics for a total of 14 day course. He was instructed to use oxygen and breathing treatments as normally at home and increase his activity as tolerated to help increase his lung function. He is to return to the hospital should he have worsening or no improvement in his symptoms. At time of discharge, new medicines included: 1. Levaquin 500 mg daily, #9 for a total of 14 days from hospitalization through outpatient treatment. 2. Guaifenesin 600 mg twice daily, #14. 3. Prednisone tapering dose with 10 mg tablets. He was to have 40 mg for 3 days, 30 mg for 3 days, 20 mg for 3 days and 10 mg for 3 days. He is to see Dr. Sykes prior to discontinuation of the Prednisone taper dose to continue with senior care Prednisone as needed. He was discharged in stable condition. #[id number] [facility]
--- NOTE | 2017-01-01 14:08 | RAD ---
EXAM: Two view chest. INDICATION: Chest pain. COMPARISON: Chest x-ray: None. FINDINGS: The lungs are emphysematous. There is no focal consolidation. There is no pneumothorax or pleural effusion. The heart is mildly enlarged. There is no pneumothorax. The bones are unchanged. IMPRESSION: Emphysematous appearing lungs Electronically signed by: Júnior Monroe MD 12/23/2016 7:08 AM COAL BRIQUETTE MACHINE OPERATOR
--- NOTE | 2017-01-25 23:46 | RAD ---
NAME: MELITON AGUSTINROCEDURE: XR CHEST 2 VIEWSORDER DATE: 12/27/2016 7:22 AM CSTACCESSION NUMBER: [id number] CLINICAL HISTORY: RLL PNA INDICATION: Evaluation of right lower lobe pneumonia COMPARISON: 12/25/2016 TECHNIQUE: PA and and lateral chest radiographs were obtained. FINDINGS: Underlying changes of COPD are again seen. There is presence of minimal right lower lobe infiltrate/atelectasis, unchanged There are no pneumothoraces or pleural effusions. The pulmonary vascularity is normal. Note is made of few old healed right-sided rib fractures. The cardiomediastinal silhouette is stable IMPRESSION: Underlying changes of COPD are again seen. There is presence of minimal right lower lobe infiltrate/atelectasis, unchanged . Place of interpretation: Teleradiology. Electronically signed by: Darien Brambila MD 12/27/2016 10:16 AM CREDIT RATING CHECKER
--- NOTE | 2017-01-26 01:23 | RAD ---
NAME: MELITON AGUSTINROCEDURE: XR CHEST 2 VIEWSORDER DATE: 12/27/2016 7:22 AM CSTACCESSION NUMBER: [id number] CLINICAL HISTORY: RLL PNA INDICATION: Evaluation of right lower lobe pneumonia COMPARISON: 12/25/2016 TECHNIQUE: PA and and lateral chest radiographs were obtained. FINDINGS: Underlying changes of COPD are again seen. There is presence of minimal right lower lobe infiltrate/atelectasis, unchanged There are no pneumothoraces or pleural effusions. The pulmonary vascularity is normal. Note is made of few old healed right-sided rib fractures. The cardiomediastinal silhouette is stable IMPRESSION: Underlying changes of COPD are again seen. There is presence of minimal right lower lobe infiltrate/atelectasis, unchanged . Place of interpretation: Teleradiology. Electronically signed by: Darien Brambila MD 12/27/2016 10:16 AM SKATE HOP
--- NOTE | 2017-01-26 04:31 | RAD ---
NAME: MELITON AGUSTINROCEDURE: XR CHEST 2 VIEWSORDER DATE: 12/27/2016 7:22 AM CSTACCESSION NUMBER: [id number] CLINICAL HISTORY: RLL PNA INDICATION: Evaluation of right lower lobe pneumonia COMPARISON: 12/25/2016 TECHNIQUE: PA and and lateral chest radiographs were obtained. FINDINGS: Underlying changes of COPD are again seen. There is presence of minimal right lower lobe infiltrate/atelectasis, unchanged There are no pneumothoraces or pleural effusions. The pulmonary vascularity is normal. Note is made of few old healed right-sided rib fractures. The cardiomediastinal silhouette is stable IMPRESSION: Underlying changes of COPD are again seen. There is presence of minimal right lower lobe infiltrate/atelectasis, unchanged . Place of interpretation: Teleradiology. Electronically signed by: Darien Brambila MD 12/27/2016 10:16 AM TELEVISION STATION MANAGER
--- NOTE | 2017-01-26 05:39 | RAD ---
NAME: MELITON AGUSTINROCEDURE: XR CHEST 2 VIEWSORDER DATE: 12/27/2016 7:22 AM CSTACCESSION NUMBER: [id number] CLINICAL HISTORY: RLL PNA INDICATION: Evaluation of right lower lobe pneumonia COMPARISON: 12/25/2016 TECHNIQUE: PA and and lateral chest radiographs were obtained. FINDINGS: Underlying changes of COPD are again seen. There is presence of minimal right lower lobe infiltrate/atelectasis, unchanged There are no pneumothoraces or pleural effusions. The pulmonary vascularity is normal. Note is made of few old healed right-sided rib fractures. The cardiomediastinal silhouette is stable IMPRESSION: Underlying changes of COPD are again seen. There is presence of minimal right lower lobe infiltrate/atelectasis, unchanged . Place of interpretation: Teleradiology. Electronically signed by: Darien Brambila MD 12/27/2016 10:16 AM CHIEF CARDIOPULMONARY TECHNOLOGIST
== END 2016-12-27 11:40 | disposition home health service (06) | DRG 190 ==
LOC: UNDOADMIN 15:25 → MS 15:25
PROVIDERS: ADMIT Family Medicine; ATTEND Nurse Practitioner Family
DX: J44.0 Chronic obstructive pulmonary disease with (acute) lower respiratory infection (principal); J15.1 Pneumonia due to Pseudomonas; E87.2 Acidosis; J44.1 Chronic obstructive pulmonary disease with (acute) exacerbation; K21.9 Gastro-esophageal reflux disease without esophagitis; E11.9 Type 2 diabetes mellitus without complications; M19.90 Unspecified osteoarthritis, unspecified site; I50.9 Heart failure, unspecified; E78.5 Hyperlipidemia, unspecified; I11.0 Hypertensive heart disease with heart failure; I48.2 Chronic atrial fibrillation; Z66 Do not resuscitate; Z79.01 Long term (current) use of anticoagulants; Z87.891 Personal history of nicotine dependence